=== PATIENT | male | born 1990 | race African-American/Black ===

== ENCOUNTER 2018-06-06 19:25 | Emergency (ER) | payer MEDICAID ==
[~2018-06-06] VITALS: Ht 165.1 cm; Wt 55.0 kg
[2018-06-06 22:57] LABS: CLARITY URINE CLOUDY (CLEAR); COLOR URINE YELLOW (YELLOW); KETONES URINE NEGATIVE (NEGATIVE); LEUKOCYTE ESTERASE URINE 3+ (NEGATIVE); NITRITE URINE NEGATIVE (NEGATIVE); OCCULT BLOOD URINE TRACE (NEGATIVE); PH URINE 6.5 (4.5-8.0); PROTEIN URINE TRACE (NEGATIVE); SPECIFIC GRAVITY URINE 1.026 (1.005-1.030)
[2018-06-06] MEDS ORDERED: AZITHROMYCIN 500 MG TABLET PO ONE (23:30)
[2018-06-06] MEDS ORDERED: CEFTRIAXONE SODIUM 250 MG/VIAL IM ONE (23:30)
[2018-06-07 00:16] VITALS: BP 119/75
== END 2018-06-07 00:17 | disposition home or self-care (01) ==
LOC: ER 19:25
DX: N34.2 Other urethritis (principal); B34.9 Viral infection, unspecified; J02.9 Acute pharyngitis, unspecified; F17.210 Nicotine dependence, cigarettes, uncomplicated; F12.10 Cannabis abuse, uncomplicated
CPT/HCPCS: 81003; 87070; 87086; 87430; 96372; 99283; J0696